=== PATIENT | male | born 1960 | race Caucasian/White ===

== ENCOUNTER 2024-03-02 22:22 | Emergency (ER) | payer MEDICARE, OTHER ==
[~2024-03-02] VITALS: Ht 182.9 cm; Wt 94.3 kg
[2024-03-02] MEDS ORDERED: TETRAcaine 5 ML BOTTLE ONE (23:25)
[2024-03-02] MEDS ORDERED: FLUORESCEIN SODIUM OPHTH 1 EA STRIP ONE (23:25)
[2024-03-02] MEDS ORDERED: OFLO5DRO RIGHTEYE (23:37)
[2024-03-02] MEDS: FLUORESCEIN SODIUM OPHTH 1 EA STRIP OP ONE (23:41)
[2024-03-02 23:43] VITALS: BP 142/93; TEMP 98.5; O2SAT 96
== END 2024-03-02 23:43 | disposition home or self-care (01) ==
LOC: ER 22:38
DX: H57.8A1 Foreign body sensation, right eye (principal); I10 Essential (primary) hypertension; Z87.09 Personal history of other diseases of the respiratory system; Z88.0 Allergy status to penicillin; Z88.8 Allergy status to other drugs, medicaments and biological substances